=== PATIENT | female | born 1980 | race Caucasian/White ===

== ENCOUNTER 2018-05-02 19:33 | Emergency (ER) | payer OTHER ==
[2018-05-02] MEDS ORDERED: Silver Sulfadiazine 1% Crm 20 GM Tube ONE (20:00)
[2018-05-02] MEDS ORDERED: Silver Sulfadiazine 1% Crm 50 GM Tube TOP ONE (20:00)
[2018-05-02] MEDS ORDERED: Ketorolac 60 MG/2 ML SDV IM ONE (20:14)
[2018-05-02] MEDS ORDERED: Diphtheria,Pertussis(Acell),Tetanus Vaccine 0.5 ML SDV inactive IM ONE (20:14)
--- NOTE | 2018-05-02 20:25 | EDM.PDOC ---
ED HPI GENERAL MEDICAL PROBLEM - General Chief Complaint: General Stated Complaint: BURN Time Seen by Provider: 05/02/18 20:00 Source of Information: Reports: Patient History Limitations: Reports: No Limitations - History of Present Illness INITIAL COMMENTS - FREE TEXT/NARRATIVE: Pt is a 38 year old female. Who has gandara on her left hand. According to patient , she was making soup and , hot soup accidently fell on the dorsum of her left thumb and hand and sustained gandara. Pt claims she took some clean cloth and swiped her hand nd sustained open wound. She immediately placed the hand under cold running water. and applied some ice wrap over it and came into emergency room. C/o burning pain. Pt is not sure of her tetanus shot. No other injuries. Onset: Today Onset Date: 05/02/18 Onset Time: 18:00 Location: Reports: Other (left hand) Quality: Reports: Ache Severity: Moderate Improves with: Reports: Cold Therapy Worsens with: Reports: None Associated Symptoms: Denies: Confusion, Chest Pain, Cough, Diaphoresis, Fever/ Chills, Headaches, Nausea/Vomiting, Rash, Seizure, Shortness of Breath, Syncope , Weakness ED ROS GENERAL - Review of Systems Review Of Systems: See Below Constitutional: Denies: Fever, Chills, Night Sweats HEENT: Denies: Rhinitis, Sinus Problem, Throat Pain Respiratory: Denies: Cough, Sputum Cardiovascular: Denies: Chest Pain, Lightheadedness GI/Abdominal: Denies: Abdominal Pain, Nausea, Vomiting Skin: Reports: Erythema, Burn(s). Denies: Bruising, Pruritis, Rash ED EXAM, GENERAL - Physical Exam Exam: See Below Exam Limited By: No Limitations General Appearance: Alert, WD/WN, No Apparent Distress Eye Exam: Bilateral Eye: EOMI, PERRL Ears: Normal External Exam, Normal Canal, Hearing Grossly Normal, Normal TMs Ear Exam: Bilateral Ear: Auricle Normal, Canal Normal, TM normal Nose: Normal Inspection, Normal Mucosa, No Blood Throat/Mouth: Normal Inspection, Normal Lips, Normal Teeth, Normal Gums, Normal Oropharynx, Normal Voice, No Airway Compromise Head: Atraumatic, Normocephalic Neck: Normal Inspection, Supple, Non-Tender, Full Range of Motion Respiratory/Chest: No Respiratory Distress, Lungs Clear, Normal Breath Sounds, No Accessory Muscle Use, Chest Non-Tender Cardiovascular: Normal Peripheral Pulses, Regular Rate, Rhythm, No Edema, No Gallop, No JVD, No Murmur, No Rub Extremities: Normal Inspection, Normal Range of Motion, Non-Tender, Normal Capillary Refill, No Pedal Edema Skin Exam: Warm, Other (Left hand: there is approximately 6cm by 4cm are over the dorsum of the left thumb and the hand with erythematous ,superficial second degree gandara. The skin is peeled open. there is miniml skin oozing. Sensitive to touch.) Course - Vital Signs Text/Narrative:: Pt has developed small area of superficial second degree gandara. The wound was cleaned and sterile SSD dressing done. Pt advised daily dressing and keep the wound clean and dry. Advised daily dressing. She did receive Toradol 60mg IM. Advised to take edwards 800mg 3 times daily for pain.Burn might heal with superficial skin scaring, without any complications. Also patient did receive Tdap today. Advised to followup with her PCP in 3-5 days or if there is any complication or infection. - Orders/Labs/Meds Orders: Active Orders 24 hr Category Date Time Status Vaccines to be Administered [RC] PER UNIT ROUTINE Care 05/02/18 20:14 Active Meds: Medications Discontinued Medications Generic Name Dose Route Start Last Admin Trade Name Freq PRN Reason Stop Dose Admin Diphtheria/Tetanus/Acell Pertussis 0.5 ml 05/02/18 20:14 Boostrix IM 05/02/18 20:15 .ONCE ONE Ketorolac Tromethamine 60 mg 05/02/18 20:14 Toradol IM 05/02/18 20:15 ONETIME ONE Departure - Departure Time of Disposition: 20:15 Disposition: Home, Self-Care 01 Condition: Fair Clinical Impression: Burn, hands, second degree - Discharge Information *PRESCRIPTION DRUG MONITORING PROGRAM REVIEWED*: Not Applicable *COPY OF PRESCRIPTION DRUG MONITORING REPORT IN PATIENT ENA: Not Applicable Instructions: Burn Care, Adult, [id number] Forms: ED Department Discharge Additional Instructions: Change drsg twice a day. Apply silvadine cream to area, cover with gauze secured with gagan wrap. - Problem List & Annotations (1) Burn, hands, second degree SNOMED Code(s): 03768943 Code(s): T23.209A - BURN OF SECOND DEGREE OF UNSP HAND, UNSP SITE, INIT ENCNTR Status: Acute - Problem List Review Problem List Initiated/Reviewed/Updated: Yes - My Orders Last 24 Hours: My Active Orders 05/02/18 20:14 Vaccines to be Administered [RC] PER UNIT ROUTINE - Assessment/Plan Last 24 Hours: My Active Orders 05/02/18 20:14 Vaccines to be Administered [RC] PER UNIT ROUTINE Assessment:: small 6cm by 4cms, second degree burn of dorsum of left hand Plan: Pt has developed small area of superficial second degree gandara. The wound was cleaned and sterile SSD dressing done. Pt advised daily dressing and keep the wound clean and dry. Advised daily dressing. She did receive Toradol 60mg IM. Advised to take edwards 800mg 3 times daily for pain.Burn might heal with superficial skin scaring, without any complications. Also patient did receive Tdap today. Advised to followup with her PCP in 3-5 days or if there is any complication or infection.
== END 2018-05-02 20:15 | disposition home or self-care (01) ==
LOC: LB.ED 19:33
DX: T23.202A Burn of second degree of left hand, unspecified site, initial encounter (principal); Z23 Encounter for immunization
CPT/HCPCS: 16020; 90471; 90715; 96372; 99283; A9270; J1885